=== PATIENT | male | born 1975 | race Two or more races ===

== ENCOUNTER 2024-08-03 17:54 | Emergency (ER) | payer MEDICAID, SELFPAY ==
[2024-08-03 18:40] VITALS: BP 131/84; PULSE 89; RESP 18; TEMP 36.9; O2SAT 99; BMI 23.7
--- NOTE | 2024-08-03 18:54 | XR_ITS ---
Examination: Testicular sonography complete Technique: Grayscale sonographic images testes, assessment arterial inflow venous outflow Doppler spectral analysis carful analysis Exam date and time: August 03, 2023 1901 hrs. Indications: Right testicular pain and swelling beginning 3 weeks ago Findings: Right testis 3.5 x 3.0 x 2.8 cm Epididymis 2.5 cm Appendix testis 6 x 4 mm increased flow to the left epididymis Arterial flow testicle. No testicular mass Moderate hydrocele Left testis 4.1 x 2.4 x 3.3 cm Epididymis 12 mm Appendix testis 7 mm Arterial flow testicle. No testicular mass Impression: No testicular torsion or testicular mass Right epididymitis Moderate right hydrocele
--- NOTE | 2024-08-03 19:08 | PD.EDMALE ---
ED Male Genitalurinary RME/HPI General Chief complaint: Urogenital-Male Stated complaint: Swollen right testicle X 3 days Time Seen by Provider: 08/03/24 18:53 Arrival date/time: 08/03/24 17:54 49M with no significant PMH presents to ED with 3 weeks of R testicle pain and 3 days of R testicular swelling. Patient denies dysuria, penile discharge, and concern for STDs. Patient was seen in clinic and given Rocephin and Ciprofloxacin. Limitations: no limitations Related Data Allergies Allergy/AdvReac Type Severity Reaction Status Date / Time No Known Allergies Allergy Verified 08/03/24 17:59 Review of Systems Review of Systems Systems Reviewed: All systems reviewed, normal except as documented Constitutional Constitutional: Reports system reviewed and no additional complaints, except as documented, Denies fever(s) and Denies headache(s) ENT Ears, Nose, Mouth, and Throat: Denies disequilibrium and Denies headache(s) Cardiovascular Cardiovascular: Reports system reviewed and no additional complaints, except as documented, Denies chest pain and Denies dyspnea Respiratory Respiratory: Reports system reviewed and no additional complaints, except as documented, Denies cough and Denies dyspnea Gastrointestinal Gastrointestinal: Reports system reviewed and no additional complaints, except as documented, Denies abdominal pain, Denies nausea and Denies vomiting Genitourinary Genitourinary: Reports as per HPI, Reports scrotal swelling and Reports testicular pain Neurologic Neurologic: Reports system reviewed and no additional complaints, except as documented, Denies confusion, Denies disequilibrium and Denies headache(s) Psychiatric Psychiatric: Denies confusion Past Medical History Social History SMOKING STATUS: Former smoker ED Exam General Limitations: Present no limitations General appearance: Present alert and in no apparent distress Head Head exam: Present atraumatic Eye Eye exam: Present normal appearance, PERRL and EOMI ENT ENT exam: Present normal exam, normal oropharynx and mucous membranes moist Neck Neck exam: Present normal inspection, full ROM and trachea midline Chest Chest inspection: Present normal inspection and symmetric chest wall rise Respiratory Respiratory exam: Present normal lung sounds bilaterally Cardiovascular Cardiovascular exam: Present regular rate, normal rhythm and normal heart sounds Abdominal Exam Abdominal exam: Present soft and normal bowel sounds Expanded Exam Scrotal exam: right: testicular tenderness and testicular swelling Extremities Exam Extremities exam: Present normal inspection and full ROM Back Exam Back exam: Present normal inspection and full ROM Neurological Exam Neurological exam: Present alert, oriented X3 and CN II-XII intact Psychiatric Psychiatric exam: Present normal affect and normal mood Skin Skin exam: Present warm, dry, intact and normal color Course Quality Measures none Orders Category Date Time Status US testicular Stat Exams 08/03/24 18:54 Completed Urinalysis, C/S if Indicated Stat Lab 08/03/24 19:53 Completed Naproxen [Naprosyn] Med 08/03/24 20:30 Discontinued 500 mg PO X1 ONE Vital Signs Vital signs: Vital Signs Temperature 98.5 F 08/03/24 18:40 Pulse Rate 89 08/03/24 18:40 Respiratory Rate 18 08/03/24 18:40 Blood Pressure 131/84 H 08/03/24 18:40 Pulse Oximetry (%) 99 08/03/24 18:40 Oxygen Delivery Method Room Air 08/03/24 18:40 O2 at 99% on RA and WNLs Urogenital - Male MDM Narrative MDM Narrative:: 49M with no significant PMH presents to ED with 3 weeks of R testicle pain and 3 days of R testicular swelling. Patient denies dysuria, penile discharge, and concern for STDs. Patient was seen in clinic and given Rocephin and Ciprofloxacin. Physical exam with electrocardiograph technician reveals R testicular swelling and tenderness. Patient is afebrile, calm, and alert. UA clean. US L epididymitis. Counseled to finish ABX. Patient data External records reviewed:: None Clinical information provided by:: patient Social determinants that could affect healthcare access:: none Patient has the following chronic illnesses:: none How is presenting disease/condition affected by chronic disease/condition?: no chronic disease Evaluation data The following diagnostics were reviewed and interpreted by me:: lab results and radiology exam(s) Lab and/or radiology exams considered but not ordered:: ordered Interpretation Summary: above Medications / Prescriptions Medications or Prescriptions considered but not ordered:: ordered Medication administrations:: Medication Administration History Discontinued Medications Naproxen (Naproxen 250 Mg Tablet) 500 mg PO X1 ONE Stop: 08/03/24 20:31 Last Admin: 08/03/24 20:32 Dose: 500 mg Documented By: OA above Consultations Consultation(s) initiated? (list below): No Diagnosis Urogenital Male Differential Diagnosis: urinary tract infection, priapism, urethritis, epididymitis, genital herpes simplex, prostatitis, acute retention of urine and inguinal hernia Most likely diagnosis given after review of the tests above:: epididymitis Admission Indicated Admission indicated?: not indicated Admission Request Was there a request for admission?: No Disposition Plan Disposition Plan: Discharge Discharge Attestation Discharge Attestation: The patient and all family members were given an opportunity to ask questions and understood the discharge instructions. Discharge instructions specifically effects, indications for sooner follow up or return to the emergency department, and the expected course of current diagnosis. Patient condition: Stable Discharge Plan Plan Patient Disposition: HOME (Self Care) Disposition Comment: Stable Prescriptions/Referrals Referrals: No Primary/Family,Physician [Primary Care Provider] - In 1 week Problem List Clinical Impression: Epididymitis Patient/Caregiver Discharge Instructions Education Materials: ED Epididymitis Additional Instructions: Please follow-up with PCP within 24-48 hours and return immediately if symptoms worsen. Ibuprofen/Tylenol can be used simultaneously for greater fever/pain control. Make sure to finish ABX. Print Language: Portuguese Stand Alone Forms: Patient Portal Info Letter JUSTICE/REY Supervising Physician MARIXA Supervising Physician: Dr. Topete
[2024-08-03 20:05] LABS: Collection Type, Urine Clean Catch; Squamous Epithelial Cell,Urine 0 /hpf (0-5)
[2024-08-03 20:15] LABS: Bilirubin,Urine Negative (Negative); Blood,Urine 1+ (Negative); Clarity,Urine Clear (Clear/Hazy); Color,Urine Yellow (Lt Yel-Yel); Culture Indicated,Urine Not Indicated; Glucose, Urine Negative (Negative); Ketones,Urine Negative (Negative); Leukocyte Esterase,Urine Negative (Negative); Nitrite,Urine Negative (Negative); PH,Urine 5.5 (5.0-7.0); Protein,Urine Trace (Neg - Trace); RBC,Urine 7 /hpf (0-3); Specific Gravity,Urine 1.031 (1.001-1.035); Urobilinogen,Urine Negative mg/dL (0.0-1.0); WBC,Urine 2 /hpf (0-5)
[2024-08-03] MEDS: NAPROXEN 250 MG TABLET 500 MG PO (20:32)
== END 2024-08-03 20:50 | disposition home or self-care (01) ==
PROVIDERS: Physician Assistant; Emergency Provider Emergency Medicine
DX: N45.1 Epididymitis (principal); Z87.891 Personal history of nicotine dependence
CPT/HCPCS: 76870; 81001; 99284; A9270